=== PATIENT | male | born 1935 | race African-American/Black ===

== ENCOUNTER 2018-03-03 19:15 | Emergency (ER) | payer MEDICARE ==
[~2018-03-03] VITALS: Ht 175.3 cm; Wt 68.0 kg
[~2018-03-03 19:15] MED LIST: AMLO2.5T45; EZET1TAB7 PO; LOSA25TA12 PO; PANT40TA4 PO
[2018-03-03 19:27] VITALS: BP 169/81
[2018-03-03] MEDS ORDERED: BACITRACIN ZINC OINT UDPKT TOP ONE (21:30)
[2018-03-03] MEDS ORDERED: TETANUS, DIPHTHERIA, PERTUSSIS VAC/PF 0.5ML (>7YR OLD) IM ONE (21:45)
== END 2018-03-03 22:11 | disposition home or self-care (01) ==
LOC: ER 19:15
DX: S62.501A Fracture of unspecified phalanx of right thumb, initial encounter for closed fracture (principal); S61.411A Laceration without foreign body of right hand, initial encounter; I10 Essential (primary) hypertension; Z85.46 Personal history of malignant neoplasm of prostate; W01.198A Fall on same level from slipping, tripping and stumbling with subsequent striking against other object, initial encounter; Y93.89 Activity, other specified; Y92.017 Garden or yard in single-family (private) house as the place of occurrence of the external cause
CPT/HCPCS: 12002; 73130; 90471; 90715; 99284

== ENCOUNTER 2019-09-30 18:26 | Inpatient (IN) | payer MEDICARE ==
[~2019-09-30] VITALS: Ht 175.3 cm; Wt 66.2 kg
[~2019-09-30 18:26] MED LIST changes: -LOSA25TA12 PO; +LOSA25TA26 PO
[2019-09-30] MEDS ORDERED: SODIUM CHLORIDE 0.9% 1,000 ML IV ONE (22:12)
[2019-09-30] MEDS ORDERED: ONDANSETRON HCL 4MG/2ML INJ IV STA (22:12)
[2019-09-30] MEDS ORDERED: MORPHINE SULFATE 2 MG/ML CPJ (NOT FOR IM USE) IV PRN (22:15)
[2019-09-30] MEDS ORDERED: VANCOMYCIN 1 G PREMIX 200 ML IV ONE (22:15)
[2019-09-30] MEDS ORDERED: PIPERACILLIN/TAZ 3.375G PREMIX 50 ML IV ONE (22:15)
[2019-09-30 22:51] LABS: BASOPHILS % 0.8 % (0.0-2.0); EOSINOPHILS % 3.7 % (0.0-5.0); HEMATOCRIT. 30.1 % (42.0-52.0); HEMOGLOBIN. 9.9 g/dL (14.0-18.0); LYMPHOCYTES % 17.2 % (20.0-50.0); MEAN CORPUSCULAR VOLUME 93.7 fL (80.0-94.0); MEAN PLATELET VOLUME 9.4 fl (7.4-10.4); MONOCYTES % 10.1 % (2.0-8.0); NEUTROPHILS % 68.2 % (40.0-76.0); PLATELET 231 x1000/uL (130-400); RED BLOOD CELL COUNT 3.21 mill/uL (4.7-6.1); RED CELL DISTRIBUTION WIDTH 15.6 % (11.6-14.6)
[2019-09-30 22:53] LABS: CHLORIDE 110 mEq/L (98-107)
[2019-09-30 23:02] LABS: PROTHROMBIN TIME 10.8 sec (9.6-11.0)
[2019-09-30 23:02] LABS: CLARITY URINE CLEAR (CLEAR); COLOR URINE YELLOW (YELLOW); KETONES URINE NEGATIVE (NEGATIVE); LEUKOCYTE ESTERASE URINE 2+ (NEGATIVE); NITRITE URINE POSITIVE (NEGATIVE); OCCULT BLOOD URINE NEGATIVE (NEGATIVE); PROTEIN URINE NEGATIVE (NEGATIVE); SPECIFIC GRAVITY URINE 1.021 (1.005-1.030); UROBILINOGEN URINE 0.2 E.U./dL (0.2-1.0)
[2019-10-01 01:10] VITALS: BP 123/62
[2019-10-01] MEDS ORDERED: CLONIDINE 0.1MG TABLET PO PRN (03:30)
[2019-10-01] MEDS ORDERED: ACETAMINOPHEN 650MG/20.3ML UDC PO PRN (03:30)
[2019-10-01] MEDS ORDERED: MORPHINE SULFATE 2 MG/ML CPJ (NOT FOR IM USE) IV PRN (03:30)
[2019-10-01] MEDS ORDERED: ONDANSETRON HCL 4MG/2ML INJ IV PRN (03:30)
[2019-10-01] MEDS ORDERED: PIPERACILLIN/TAZOBACTAM 3.375 G/VIAL IV SCH (06:00)
[2019-10-01] MEDS: PIPERACILLIN/TAZOBACTAM 2.25 G in DEXTROSE 5% WATER 50 ML IV SCH ×4 (06:37→23:47)
[2019-10-01 07:03] LABS: BASOPHILS % 0.8 % (0.0-2.0); EOSINOPHILS % 5.4 % (0.0-5.0); HEMATOCRIT. 27.8 % (42.0-52.0); HEMOGLOBIN. 9.3 g/dL (14.0-18.0); LYMPHOCYTES % 23.3 % (20.0-50.0); MEAN CORPUSCULAR VOLUME 92.7 fL (80.0-94.0); MEAN PLATELET VOLUME 9.5 fl (7.4-10.4); MONOCYTES % 12.3 % (2.0-8.0); NEUTROPHILS % 58.2 % (40.0-76.0); PLATELET 202 x1000/uL (130-400); RED CELL DISTRIBUTION WIDTH 15.8 % (11.6-14.6)
[2019-10-01 07:12] LABS: CHLORIDE 113 mEq/L (98-107)
[2019-10-01] MEDS: ASPIRIN 81MG EC TABLET PO SCH (08:36)
[2019-10-01] MEDS: ENOXAPARIN 40MG/0.4ML SYR SUBCUT SCH (08:37)
[2019-10-01] MEDS: AMLODIPINE 2.5MG TABLET PO SCH (08:37)
[2019-10-01 11:22] LABS: TOTAL IRON BINDING CAPACITY 255 ug/dL (250-450)
[2019-10-01 11:41] LABS: FOLIC ACID (FOLATE) SERUM 9.7 ng/mL (>5.38)
[2019-10-01] MEDS: VANCOMYCIN 1 G PREMIX 200 ML IV SCH (14:00)
[2019-10-01] MEDS ORDERED: VANCOMYCIN 750 MG PREMIX 150 ML IV SCH (16:00)
[2019-10-01 20:00] VITALS: BP_SYST 135; BP_SYST 191; BP_DIAS 102; BP_DIAS 61
[2019-10-02] VITALS: BP_SYST 137; BP_SYST 200; BP_DIAS 117; BP_DIAS 59
[2019-10-02] MEDS ORDERED: FERR300S PO (03:47)
[2019-10-02] MEDS ORDERED: ERGO400C PO (03:49)
[2019-10-02] MEDS ORDERED: DOCU250C14 MT (03:50)
[2019-10-02 04:00] VITALS: BP_SYST 136; BP_SYST 199; BP_DIAS 105; BP_DIAS 59
[2019-10-02] MEDS: PIPERACILLIN/TAZOBACTAM 2.25 G in DEXTROSE 5% WATER 50 ML IV SCH ×3 (05:49→18:00)
[2019-10-02 09:26] LABS: BASOPHILS % 1.2 % (0.0-2.0); EOSINOPHILS % 5.3 % (0.0-5.0); HEMATOCRIT. 31.9 % (42.0-52.0); HEMOGLOBIN. 10.6 g/dL (14.0-18.0); LYMPHOCYTES % 21.5 % (20.0-50.0); MEAN CORPUSCULAR HEMOGLOBIN 31.2 pg (28.0-32.0); MEAN CORPUSCULAR VOLUME 93.5 fL (80.0-94.0); MEAN PLATELET VOLUME 9.4 fl (7.4-10.4); PLATELET 235 x1000/uL (130-400); RED BLOOD CELL COUNT 3.41 mill/uL (4.7-6.1); RED CELL DISTRIBUTION WIDTH 15.4 % (11.6-14.6)
[2019-10-02 09:41] LABS: CHLORIDE 111 mEq/L (98-107)
[2019-10-02 09:49] LABS: LDL CHOLESTEROL 65 mg/dL (5-100); PHOSPHORUS 2.4 mg/dL (2.5-4.9)
[2019-10-02 09:51] LABS: HDL CHOLESTEROL 55 mg/dL (40-59)
[2019-10-02] MEDS: AMLODIPINE 2.5MG TABLET PO SCH (10:08)
[2019-10-02] MEDS: ASPIRIN 81MG EC TABLET PO SCH (10:08)
[2019-10-02] MEDS: ENOXAPARIN 40MG/0.4ML SYR SUBCUT SCH (10:09)
[2019-10-02] MEDS: VANCOMYCIN 1 G PREMIX 200 ML IV SCH (13:52)
[2019-10-02 20:00] VITALS: BP 134/79
[2019-10-03] VITALS: BP 128/65
[2019-10-03] MEDS: PIPERACILLIN/TAZOBACTAM 2.25 G in DEXTROSE 5% WATER 50 ML IV SCH ×3 (01:20→11:11)
[2019-10-03 04:00] VITALS: BP 114/59
[2019-10-03 08:00] VITALS: BP 119/59
[2019-10-03] MEDS: ASPIRIN 81MG EC TABLET PO SCH (09:43)
[2019-10-03] MEDS: AMLODIPINE 2.5MG TABLET PO SCH (09:43)
[2019-10-03] MEDS: ENOXAPARIN 40MG/0.4ML SYR SUBCUT SCH (09:44)
[2019-10-03 11:43] VITALS: BP 119/59
[2019-10-04] MEDS ORDERED: VANCOMYCIN 1 G PREMIX 200 ML IV SCH (02:00)
== END 2019-10-03 13:15 | disposition home or self-care (01) | DRG 872 ==
LOC: ER 18:26 → 6EST 23:14 → EDBEDREQTM 23:17 → EDBEDREQ 23:17 → ENRESERV 10-01 00:16 → 6EST 10-01 01:31
PROVIDERS: ADMIT Internal Medicine; ATTEND Internal Medicine
DX: A41.9 Sepsis, unspecified organism (principal); L03.115 Cellulitis of right lower limb; N39.0 Urinary tract infection, site not specified; E44.1 Mild protein-calorie malnutrition; L03.116 Cellulitis of left lower limb; M86.8X2 Other osteomyelitis, upper arm; E78.00 Pure hypercholesterolemia, unspecified; D64.9 Anemia, unspecified; K57.90 Diverticulosis of intestine, part unspecified, without perforation or abscess without bleeding; B96.20 Unspecified Escherichia coli [E. coli] as the cause of diseases classified elsewhere; D63.8 Anemia in other chronic diseases classified elsewhere; I11.9 Hypertensive heart disease without heart failure; Z85.46 Personal history of malignant neoplasm of prostate; Z79.82 Long term (current) use of aspirin; Z82.49 Family history of ischemic heart disease and other diseases of the circulatory system; Z92.21 Personal history of antineoplastic chemotherapy; Z68.21 Body mass index [BMI] 21.0-21.9, adult
CPT/HCPCS: 36415; 71045; 80048; 80053; 80061; 80202; 81003; 82607; 82746; 83036; 83540; 83550; 83605; 83735; 84100; 84145; 84484; 85025; 87077; 87186; 93005; 93970; 99285; J1650; J2543; J3370; J7030; J7040; J7060

== ENCOUNTER 2021-06-18 18:44 | Inpatient (IN) | payer MEDICARE ==
[~2021-06-18] VITALS: Ht 175.3 cm; Wt 54.4 kg
[2021-06-18 17:00] VITALS: BP 132/61
[~2021-06-18 18:44] MED LIST changes: +ATOR10TA PO; +DOCU250C14 MT; +ERGO400C PO; +FERR300S PO; -PANT40TA4 PO; +PANT40TA51 PO
[2021-06-18 20:00] VITALS: BP 131/74
[2021-06-18] MEDS ORDERED: ACETAMINOPHEN 325MG TABLET PO PRN (20:15)
[2021-06-18] MEDS ORDERED: ONDANSETRON HCL 4MG TABLET PO PRN (20:30)
[2021-06-18] MEDS: ATORVASTATIN CALCIUM 10MG TABLET PO SCH (21:59)
[2021-06-18] MEDS ORDERED: INFLUENZA VACCINE 05/PF 0.5 ML SYRINGE IM ONE (23:15)
[2021-06-19] MEDS ORDERED: VISCOUS LIDOCAINE 2% 15 ML UDC MM PRN (07:15)
[2021-06-19 07:23] LABS: BASOPHILS % 0.8 % (0.0-2.0); EOSINOPHILS % 2.7 % (0.0-5.0); HEMATOCRIT. 30.9 % (42.0-52.0); LYMPHOCYTES % 8.2 % (20.0-50.0); MEAN CORPUSCULAR HEMOGLOBIN 28.1 pg (28.0-32.0); MEAN CORPUSCULAR VOLUME 87.1 fL (80.0-94.0); MEAN PLATELET VOLUME 9.3 fl (7.4-10.4); MONOCYTES % 9.5 % (2.0-8.0); NEUTROPHILS % 78.8 % (40.0-76.0); PLATELET 334 x1000/uL (130-400); RED BLOOD CELL COUNT 3.55 mill/uL (4.7-6.1); RED CELL DISTRIBUTION WIDTH 17.7 % (11.6-14.6)
[2021-06-19 07:29] LABS: CHLORIDE 105 mEq/L (98-107)
[2021-06-19] MEDS ORDERED: OXYCODONE HCL 5MG TABLET PO PRN (07:30)
[2021-06-19 07:34] LABS: TOTAL IRON BINDING CAPACITY 255 ug/dL (250-450)
[2021-06-19 08:00] VITALS: BP 120/55
[2021-06-19] MEDS ORDERED: PANTOPRAZOLE SODIUM 40 MG/VIAL IV SCH (09:00)
[2021-06-19] MEDS ORDERED: DOCUSATE SODIUM 250MG CAPSULE PO SCH (09:00)
[2021-06-19] MEDS ORDERED: PANTOPRAZOLE 40MG DR TABLET PO SCH (09:00)
[2021-06-19] MEDS ORDERED: FERROUS SULFATE 325MG TABLET PO SCH (09:00)
[2021-06-19] MEDS ORDERED: AMLODIPINE 2.5MG TABLET PO SCH ×2 (09:00)
[2021-06-19] MEDS: FAMOTIDINE 20MG TABLET PO SCH (09:01)
[2021-06-19] MEDS: LOSARTAN POTASSIUM 25 MG TABLET PO SCH (09:01)
[2021-06-19] MEDS: AMLODIPINE 2.5MG TABLET PO SCH (09:02)
[2021-06-19] MEDS: FERROUS SULFATE 325MG TABLET PO SCH (09:14)
[2021-06-19] MEDS ORDERED: SODIUM POLYSTYRENE SULFONATE 15 G/60 ML BOT PO NR (10:00)
[2021-06-19] MEDS: CYANOCOBALAMIN 1000MCG/ML VIAL IM SCH (17:38)
[2021-06-19] MEDS: ASCORBIC ACID 500 MG TABLET PO SCH (17:39)
[2021-06-19 20:00] VITALS: BP 117/56
[2021-06-19] MEDS: ATORVASTATIN CALCIUM 10MG TABLET PO SCH (21:31)
[2021-06-20 07:51] VITALS: BP 121/61
[2021-06-20] MEDS: CYANOCOBALAMIN 1000MCG/ML VIAL IM SCH (09:10)
[2021-06-20] MEDS: ASCORBIC ACID 500 MG TABLET PO SCH (09:10)
[2021-06-20] MEDS: FERROUS SULFATE 325MG TABLET PO SCH (09:10)
[2021-06-20] MEDS: FAMOTIDINE 20MG TABLET PO SCH (09:10)
[2021-06-20] MEDS: AMLODIPINE 2.5MG TABLET PO SCH (09:11)
[2021-06-20] MEDS: LOSARTAN POTASSIUM 25 MG TABLET PO SCH (09:11)
[2021-06-20 17:17] LABS: HEMATOCRIT. 32.9 % (42.0-52.0); HEMOGLOBIN. 10.7 g/dL (14.0-18.0); MEAN PLATELET VOLUME 9.1 fl (7.4-10.4); PLATELET 402 x1000/uL (130-400); RED BLOOD CELL COUNT 3.83 mill/uL (4.7-6.1); RED CELL DISTRIBUTION WIDTH 17.6 % (11.6-14.6)
[2021-06-20 17:19] LABS: CHLORIDE 104 mEq/L (98-107)
[2021-06-20 20:00] VITALS: BP 108/48
[2021-06-20 22:37] LABS: PLATELET ESTIMATE SLIGHTLY INCREASED
[2021-06-20] MEDS: ATORVASTATIN CALCIUM 10MG TABLET PO SCH (22:48)
[2021-06-21 08:07] VITALS: BP 121/61
[2021-06-21] MEDS: ASCORBIC ACID 500 MG TABLET PO SCH (08:41)
[2021-06-21] MEDS: CYANOCOBALAMIN 1000MCG/ML VIAL IM SCH (08:41)
[2021-06-21] MEDS: LOSARTAN POTASSIUM 25 MG TABLET PO SCH (08:41)
[2021-06-21] MEDS: FAMOTIDINE 20MG TABLET PO SCH (08:41)
[2021-06-21] MEDS: AMLODIPINE 2.5MG TABLET PO SCH (08:41)
[2021-06-21] MEDS: FERROUS SULFATE 325MG TABLET PO SCH (08:41)
[2021-06-21] MEDS: ENOXAPARIN 40MG/0.4ML SYR SUBCUT SCH (11:54)
[2021-06-21] MEDS ORDERED: NALOXONE HCL 0.4MG/ML VIAL IV PRN (13:15)
[2021-06-21 20:00] VITALS: BP 119/66
[2021-06-21] MEDS: ATORVASTATIN CALCIUM 10MG TABLET PO SCH (20:34)
[2021-06-22 06:24] LABS: CHLORIDE 105 mEq/L (98-107)
[2021-06-22 06:30] LABS: BASOPHILS % 1.4 % (0.0-2.0); EOSINOPHILS % 3.7 % (0.0-5.0); HEMOGLOBIN. 9.6 g/dL (14.0-18.0); LYMPHOCYTES % 18.5 % (20.0-50.0); MEAN CORPUSCULAR HEMOGLOBIN 28.3 pg (28.0-32.0); MEAN CORPUSCULAR VOLUME 85.8 fL (80.0-94.0); MEAN PLATELET VOLUME 8.7 fl (7.4-10.4); MONOCYTES % 14.3 % (2.0-8.0); NEUTROPHILS % 62.1 % (40.0-76.0); PLATELET 395 x1000/uL (130-400); RED BLOOD CELL COUNT 3.38 mill/uL (4.7-6.1); RED CELL DISTRIBUTION WIDTH 17.6 % (11.6-14.6)
[2021-06-22 07:48] VITALS: BP 114/56
[2021-06-22] MEDS: CYANOCOBALAMIN 1000MCG/ML VIAL IM SCH (08:43)
[2021-06-22] MEDS: AMLODIPINE 2.5MG TABLET PO SCH (08:44)
[2021-06-22] MEDS: LOSARTAN POTASSIUM 25 MG TABLET PO SCH (08:44)
[2021-06-22] MEDS: FAMOTIDINE 20MG TABLET PO SCH (08:44)
[2021-06-22] MEDS: ASCORBIC ACID 500 MG TABLET PO SCH (08:44)
[2021-06-22] MEDS: FERROUS SULFATE 325MG TABLET PO SCH (08:45)
[2021-06-22] MEDS: ENOXAPARIN 40MG/0.4ML SYR SUBCUT SCH (08:45)
[2021-06-22 20:00] VITALS: BP 118/52
[2021-06-22] MEDS: ATORVASTATIN CALCIUM 10MG TABLET PO SCH (20:13)
[2021-06-23 07:49] VITALS: BP 127/62
[2021-06-23] MEDS: CYANOCOBALAMIN 1000MCG/ML VIAL IM SCH (08:36)
[2021-06-23] MEDS: AMLODIPINE 2.5MG TABLET PO SCH (08:37)
[2021-06-23] MEDS: LOSARTAN POTASSIUM 25 MG TABLET PO SCH (08:37)
[2021-06-23] MEDS: ENOXAPARIN 40MG/0.4ML SYR SUBCUT SCH (08:37)
[2021-06-23] MEDS: FERROUS SULFATE 325MG TABLET PO SCH (08:37)
[2021-06-23] MEDS: ASCORBIC ACID 500 MG TABLET PO SCH (08:37)
[2021-06-23] MEDS: FAMOTIDINE 20MG TABLET PO SCH (08:37)
[2021-06-23] MEDS ORDERED: IRON SUCROSE COMPLEX 200 MG in SODIUM CHLORIDE 0.9% 100 ML IV SCH (14:00)
[2021-06-23 20:00] VITALS: BP 137/65
[2021-06-23] MEDS: ATORVASTATIN CALCIUM 10MG TABLET PO SCH (21:57)
[2021-06-24 08:14] VITALS: BP 120/50
[2021-06-24] MEDS: FAMOTIDINE 20MG TABLET PO SCH (08:45)
[2021-06-24] MEDS: ASCORBIC ACID 500 MG TABLET PO SCH (08:45)
[2021-06-24] MEDS: FERROUS SULFATE 325MG TABLET PO SCH (08:45)
[2021-06-24] MEDS: AMLODIPINE 2.5MG TABLET PO SCH (08:46)
[2021-06-24] MEDS: LOSARTAN POTASSIUM 25 MG TABLET PO SCH (08:46)
[2021-06-24] MEDS: ENOXAPARIN 40MG/0.4ML SYR SUBCUT SCH (08:51)
[2021-06-24] MEDS ORDERED: OXYCODONE HCL 5MG TABLET PO PRN (19:00)
[2021-06-24 20:00] VITALS: BP 110/62
[2021-06-24] MEDS: ATORVASTATIN CALCIUM 10MG TABLET PO SCH (20:44)
[2021-06-25 08:00] VITALS: BP 117/58
[2021-06-25] MEDS: ASCORBIC ACID 500 MG TABLET PO SCH (08:40)
[2021-06-25] MEDS: FERROUS SULFATE 325MG TABLET PO SCH (08:40)
[2021-06-25] MEDS: LOSARTAN POTASSIUM 25 MG TABLET PO SCH (08:40)
[2021-06-25] MEDS: FAMOTIDINE 20MG TABLET PO SCH (08:40)
[2021-06-25] MEDS: AMLODIPINE 2.5MG TABLET PO SCH (08:40)
[2021-06-25] MEDS: ENOXAPARIN 30MG/0.3ML SYR SUBCUT SCH (08:41)
[2021-06-25 14:09] LABS: 25-HYDROXY VITAMIN D3 35 ng/mL (.)
[2021-06-25] MEDS ORDERED: ERGOCALCIFEROL 50000UNITS CAPSULE PO SCH (15:00)
[2021-06-25 20:00] VITALS: BP 118/57
[2021-06-25] MEDS: ATORVASTATIN CALCIUM 10MG TABLET PO SCH (20:44)
[2021-06-26 08:00] VITALS: BP 117/56
[2021-06-26] MEDS: LOSARTAN POTASSIUM 25 MG TABLET PO SCH (08:59)
[2021-06-26] MEDS: ASCORBIC ACID 500 MG TABLET PO SCH (08:59)
[2021-06-26] MEDS: FERROUS SULFATE 325MG TABLET PO SCH (08:59)
[2021-06-26] MEDS: ENOXAPARIN 30MG/0.3ML SYR SUBCUT SCH (08:59)
[2021-06-26] MEDS: AMLODIPINE 2.5MG TABLET PO SCH (09:00)
[2021-06-26] MEDS: FAMOTIDINE 20MG TABLET PO SCH (09:00)
[2021-06-26] MEDS: MEGESTROL ACETATE 400 MG/10 ML UDC PO SCH (13:43)
[2021-06-26] MEDS ORDERED: TOPUD PO (15:42)
[2021-06-26] MEDS ORDERED: ATOR10TA PO (15:42)
[2021-06-26] MEDS ORDERED: AMLO2.5T45 PO (15:42)
[2021-06-26] MEDS ORDERED: FERR-63 PO (15:42)
[2021-06-26] MEDS ORDERED: ASCO500T20 PO (15:42)
[2021-06-26] MEDS ORDERED: FAMO20TA8 PO (15:42)
[2021-06-26] MEDS ORDERED: LOSA25TA3 PO (15:42)
[2021-06-26] MEDS ORDERED: MEGE400O4 PO (15:42)
[2021-06-26 20:00] VITALS: BP 121/59
[2021-06-26] MEDS: ATORVASTATIN CALCIUM 10MG TABLET PO SCH (20:44)
[2021-06-27 08:00] VITALS: BP 108/60
[2021-06-27] MEDS: MEGESTROL ACETATE 400 MG/10 ML UDC PO SCH (08:42)
[2021-06-27] MEDS: ASCORBIC ACID 500 MG TABLET PO SCH (08:43)
[2021-06-27] MEDS: ENOXAPARIN 30MG/0.3ML SYR SUBCUT SCH (08:43)
[2021-06-27] MEDS: FAMOTIDINE 20MG TABLET PO SCH (08:43)
[2021-06-27] MEDS: LOSARTAN POTASSIUM 25 MG TABLET PO SCH (08:43)
[2021-06-27] MEDS: FERROUS SULFATE 325MG TABLET PO SCH (08:43)
[2021-06-27] MEDS: AMLODIPINE 2.5MG TABLET PO SCH (08:44)
[2021-06-27 11:18] VITALS: BP 109/61
== END 2021-06-27 13:30 | disposition home health service (06) | DRG 375 ==
PROVIDERS: ADMIT Physical Medicine & Rehabilitation Spinal Cord Injury Medicine; ATTEND Family Medicine Adult Medicine
DX: C18.4 Malignant neoplasm of transverse colon (principal); E46 Unspecified protein-calorie malnutrition; C18.9 Malignant neoplasm of colon, unspecified; Z68.1 Body mass index [BMI] 19.9 or less, adult; I10 Essential (primary) hypertension; R53.81 Other malaise; R26.9 Unspecified abnormalities of gait and mobility; E87.5 Hyperkalemia; Z82.49 Family history of ischemic heart disease and other diseases of the circulatory system; Z90.49 Acquired absence of other specified parts of digestive tract; Z90.79 Acquired absence of other genital organ(s); E78.5 Hyperlipidemia, unspecified; D50.9 Iron deficiency anemia, unspecified; E55.9 Vitamin D deficiency, unspecified; F39 Unspecified mood [affective] disorder; R32 Unspecified urinary incontinence; K12.0 Recurrent oral aphthae; Z85.038 Personal history of other malignant neoplasm of large intestine; Z85.46 Personal history of malignant neoplasm of prostate
CPT/HCPCS: 36415; 80048; 80053; 82306; 82607; 82728; 82746; 83540; 83550; 84134; 84443; 85025; 90686; 92523; 92610; 93970; 97110; 97112; 97116; 97150; 97162; 97166; 97530; 97535; A6261; J1650; J3420; J7050; Q0162

== ENCOUNTER → 2021-08-11 | Outpatient (CLI) | payer MEDICARE ==
[~2021-08-11] MED LIST changes: -AMLO2.5T45; +AMLO2.5T45 PO; +ASCO500T20 PO; -DOCU250C14 MT; -ERGO400C PO; -EZET1TAB7 PO; +FAMO20TA8 PO; +FERR-63 PO; -FERR300S PO; -LOSA25TA26 PO; +LOSA25TA3 PO; +MEGE400O4 PO; -PANT40TA51 PO; +TOPUD PO
[2021-08-11 11:29] LABS: BASOPHILS % 0.7 % (0.0-2.0); EOSINOPHILS % 2.9 % (0.0-5.0); HEMATOCRIT. 37.5 % (42.0-52.0); LYMPHOCYTES % 25.9 % (20.0-50.0); MEAN CORPUSCULAR HEMOGLOBIN 28.2 pg (28.0-32.0); MEAN CORPUSCULAR VOLUME 87.8 fL (80.0-94.0); MEAN PLATELET VOLUME 10.5 fl (7.4-10.4); MONOCYTES % 7.4 % (2.0-8.0); NEUTROPHILS % 63.1 % (40.0-76.0); PLATELET 140 x1000/uL (130-400); RED BLOOD CELL COUNT 4.27 mill/uL (4.7-6.1); RED CELL DISTRIBUTION WIDTH 20.8 % (11.6-14.6)
[2021-08-11 11:51] LABS: CHLORIDE 110 mEq/L (98-107)
== END | disposition home or self-care (01) ==
LOC: LAB 10:53
PROVIDERS: ATTEND Internal Medicine Hematology & Oncology
DX: C18.4 Malignant neoplasm of transverse colon (principal)
CPT/HCPCS: 36415; 80053; 82378; 85025

== ENCOUNTER → 2021-10-27 | Outpatient (CLI) | payer MEDICARE ==
[2021-10-27 15:38] LABS: BASOPHILS % 0.6 % (0.0-2.0); EOSINOPHILS % 3.3 % (0.0-5.0); HEMATOCRIT. 38.6 % (42.0-52.0); HEMOGLOBIN. 12.6 g/dL (14.0-18.0); LYMPHOCYTES % 18.2 % (20.0-50.0); MEAN CORPUSCULAR HEMOGLOBIN 30.7 pg (28.0-32.0); MEAN CORPUSCULAR VOLUME 93.8 fL (80.0-94.0); MEAN PLATELET VOLUME 9.7 fl (7.4-10.4); MONOCYTES % 9.2 % (2.0-8.0); NEUTROPHILS % 68.7 % (40.0-76.0); PLATELET 163 x1000/uL (130-400); RED BLOOD CELL COUNT 4.11 mill/uL (4.7-6.1); RED CELL DISTRIBUTION WIDTH 14.7 % (11.6-14.6)
[2021-10-27 15:50] LABS: PARTIAL THROMBOPLASTIN TIME 25.9 sec (23.4-31.0); PROTHROMBIN TIME 10.9 sec (9.6-11.0)
== END | disposition home or self-care (01) ==
LOC: LAB 14:39
PROVIDERS: ATTEND Internal Medicine Hematology & Oncology
DX: C18.4 Malignant neoplasm of transverse colon (principal)
CPT/HCPCS: 36415; 85025

== ENCOUNTER → 2021-11-13 | Day surgery (SDC) | payer MEDICARE ==
[2021-11-13] VITALS (13 sets, daily range): BP systolic 135–161; BP diastolic 59–74
[~2021-11-13] VITALS: Ht 175.3 cm; Wt 49.4 kg
[~2021-11-13] MED LIST changes: +FENTANYL CITRATE/PF 50MCG/ML 2ML VIAL IV NR; +FENTANYL CITRATE/PF 50MCG/ML 2ML VIAL ONE; +LIDOCAINE HCL 1% 10 MG/ML 10ML VIAL ONE; +LIDOCAINE HCL 1% 30ML VIAL (10MG/ML) ONE; +SODIUM BICARBONATE 4% (2.4MEQ) 5ML VIAL IV ONE
[2021-11-13 12:35] LABS: HEMATOCRIT 38.9 % (42.0-52.0); HEMOGLOBIN 12.9 g/dL (14.0-18.0)
== END | disposition home or self-care (01) ==
LOC: RAD 07:24
PROVIDERS: ATTEND Internal Medicine Hematology & Oncology
DX: R16.0 Hepatomegaly, not elsewhere classified (principal); C18.4 Malignant neoplasm of transverse colon; K76.89 Other specified diseases of liver; I10 Essential (primary) hypertension; K21.9 Gastro-esophageal reflux disease without esophagitis; Z79.899 Other long term (current) drug therapy; Z87.891 Personal history of nicotine dependence; Z98.890 Other specified postprocedural states; Z20.822 Contact with and (suspected) exposure to COVID-19
CPT/HCPCS: 36415; 47000; 49411; 76942; 77002; 85014; 85018; 87426; 88300; 88307; C1887; C1893; J3010; J3490; J7040

== ENCOUNTER → 2022-01-01 | Outpatient (CLI) | payer MEDICARE ==
[~2022-01-01] MED LIST changes: -FENTANYL CITRATE/PF 50MCG/ML 2ML VIAL IV NR; -FENTANYL CITRATE/PF 50MCG/ML 2ML VIAL ONE; -LIDOCAINE HCL 1% 10 MG/ML 10ML VIAL ONE; -LIDOCAINE HCL 1% 30ML VIAL (10MG/ML) ONE; -SODIUM BICARBONATE 4% (2.4MEQ) 5ML VIAL IV ONE
[2022-01-01 13:37] LABS: BASOPHILS % 0.4 % (0.0-2.0); EOSINOPHILS % 1.5 % (0.0-5.0); HEMATOCRIT. 37.6 % (42.0-52.0); HEMOGLOBIN. 12.4 g/dL (14.0-18.0); LYMPHOCYTES % 13.8 % (20.0-50.0); MEAN CORPUSCULAR HEMOGLOBIN 30.7 pg (28.0-32.0); MEAN CORPUSCULAR VOLUME 93.2 fL (80.0-94.0); MEAN PLATELET VOLUME 11.9 fl (7.4-10.4); NEUTROPHILS % 74.3 % (40.0-76.0); PLATELET 84 x1000/uL (130-400); RED BLOOD CELL COUNT 4.03 mill/uL (4.7-6.1); RED CELL DISTRIBUTION WIDTH 14.1 % (11.6-14.6)
[2022-01-01 13:38] LABS: CHLORIDE 108 mEq/L (98-107)
== END | disposition home or self-care (01) ==
LOC: LAB 13:01
PROVIDERS: ATTEND Internal Medicine Hematology & Oncology
DX: C18.4 Malignant neoplasm of transverse colon (principal)
CPT/HCPCS: 36415; 80053; 82378; 85025

== ENCOUNTER → 2022-02-10 | Outpatient (CLI) | payer MEDICARE ==
[2022-02-10 14:00] LABS: BASOPHILS % 0.6 % (0.0-2.0); HEMATOCRIT. 35.7 % (42.0-52.0); LYMPHOCYTES % 17.4 % (20.0-50.0); MEAN CORPUSCULAR HEMOGLOBIN 31.7 pg (28.0-32.0); MEAN CORPUSCULAR VOLUME 94.4 fL (80.0-94.0); MEAN PLATELET VOLUME 11.4 fl (7.4-10.4); MONOCYTES % 13.3 % (2.0-8.0); NEUTROPHILS % 65.7 % (40.0-76.0); PLATELET 113 x1000/uL (130-400); RED BLOOD CELL COUNT 3.78 mill/uL (4.7-6.1); RED CELL DISTRIBUTION WIDTH 13.8 % (11.6-14.6)
[2022-02-10 14:16] LABS: CHLORIDE 107 mEq/L (98-107)
== END | disposition home or self-care (01) ==
LOC: LAB 13:21
PROVIDERS: ATTEND Internal Medicine Hematology & Oncology
DX: C18.4 Malignant neoplasm of transverse colon (principal)
CPT/HCPCS: 36415; 80053; 82378; 85025

== ENCOUNTER → 2022-03-24 | Outpatient (CLI) | payer MEDICARE ==
[2022-03-24 14:36] LABS: BASOPHILS % 0.9 % (0.0-2.0); EOSINOPHILS % 2.2 % (0.0-5.0); HEMATOCRIT. 33.9 % (42.0-52.0); HEMOGLOBIN. 11.3 g/dL (14.0-18.0); LYMPHOCYTES % 18.6 % (20.0-50.0); MEAN CORPUSCULAR HEMOGLOBIN 33.7 pg (28.0-32.0); MEAN CORPUSCULAR VOLUME 101.2 fL (80.0-94.0); MONOCYTES % 13.2 % (2.0-8.0); NEUTROPHILS % 65.1 % (40.0-76.0); RED BLOOD CELL COUNT 3.35 mill/uL (4.7-6.1)
[2022-03-24 14:38] LABS: CHLORIDE 106 mEq/L (98-107)
[2022-03-24 22:25] LABS: PLATELET 56 x1000/uL (130-400)
[2022-03-24 22:27] LABS: MEAN PLATELET VOLUME 11.1 fl (7.4-10.4)
== END | disposition home or self-care (01) ==
LOC: LAB 14:01
PROVIDERS: ATTEND Internal Medicine Hematology & Oncology
DX: C18.4 Malignant neoplasm of transverse colon (principal)
CPT/HCPCS: 36415; 80053; 82378; 85025

== ENCOUNTER → 2022-04-21 | Outpatient (CLI) | payer MEDICARE ==
[2022-04-21 10:19] LABS: BASOPHILS % 0.4 % (0.0-2.0); EOSINOPHILS % 1.7 % (0.0-5.0); HEMATOCRIT. 35.1 % (42.0-52.0); HEMOGLOBIN. 11.6 g/dL (14.0-18.0); LYMPHOCYTES % 10.5 % (20.0-50.0); MEAN CORPUSCULAR HEMOGLOBIN 34.5 pg (28.0-32.0); MEAN CORPUSCULAR VOLUME 104.5 fL (80.0-94.0); MEAN PLATELET VOLUME 11.4 fl (7.4-10.4); MONOCYTES % 11.3 % (2.0-8.0); NEUTROPHILS % 76.1 % (40.0-76.0); PLATELET 80 x1000/uL (130-400); RED BLOOD CELL COUNT 3.36 mill/uL (4.7-6.1); RED CELL DISTRIBUTION WIDTH 19.5 % (11.6-14.6)
[2022-04-21 10:26] LABS: CHLORIDE 107 mEq/L (98-107)
== END | disposition home or self-care (01) ==
LOC: LAB 09:46
PROVIDERS: ATTEND Internal Medicine Hematology & Oncology
DX: C18.4 Malignant neoplasm of transverse colon (principal)
CPT/HCPCS: 36415; 80053; 82378; 85025

== ENCOUNTER → 2022-07-09 | Outpatient (CLI) | payer MEDICARE ==
[2022-07-09 14:57] LABS: CHLORIDE 106 mEq/L (98-107)
[2022-07-09 14:58] LABS: BASOPHILS % 0.6 % (0.0-2.0); EOSINOPHILS % 1.6 % (0.0-5.0); HEMATOCRIT. 33.5 % (42.0-52.0); HEMOGLOBIN. 11.3 g/dL (14.0-18.0); LYMPHOCYTES % 19.9 % (20.0-50.0); MEAN CORPUSCULAR HEMOGLOBIN 35.8 pg (28.0-32.0); MEAN CORPUSCULAR VOLUME 106.6 fL (80.0-94.0); MEAN PLATELET VOLUME 11.9 fl (7.4-10.4); MONOCYTES % 10.8 % (2.0-8.0); NEUTROPHILS % 67.1 % (40.0-76.0); PLATELET 100 x1000/uL (130-400); RED BLOOD CELL COUNT 3.14 mill/uL (4.7-6.1); RED CELL DISTRIBUTION WIDTH 20.8 % (11.6-14.6)
== END | disposition home or self-care (01) ==
LOC: LAB 14:12
PROVIDERS: ATTEND Internal Medicine Hematology & Oncology
DX: C18.4 Malignant neoplasm of transverse colon (principal)
CPT/HCPCS: 36415; 80053; 82378; 85025

== ENCOUNTER → 2022-08-20 | Outpatient (CLI) | payer MEDICARE ==
[2022-08-20 15:27] LABS: BASOPHILS % 0.4 % (0.0-2.0); EOSINOPHILS % 1.4 % (0.0-5.0); HEMATOCRIT. 33.2 % (42.0-52.0); HEMOGLOBIN. 11.4 g/dL (14.0-18.0); LYMPHOCYTES % 13.4 % (20.0-50.0); MEAN CORPUSCULAR VOLUME 107.5 fL (80.0-94.0); MEAN PLATELET VOLUME 10.9 fl (7.4-10.4); MONOCYTES % 9.6 % (2.0-8.0); NEUTROPHILS % 75.2 % (40.0-76.0); PLATELET 80 x1000/uL (130-400); RED BLOOD CELL COUNT 3.09 mill/uL (4.7-6.1); RED CELL DISTRIBUTION WIDTH 20.8 % (11.6-14.6)
[2022-08-20 15:47] LABS: CHLORIDE 111 mEq/L (98-107)
== END | disposition home or self-care (01) ==
LOC: LAB 14:51
PROVIDERS: ATTEND Internal Medicine Hematology & Oncology
DX: C18.4 Malignant neoplasm of transverse colon (principal)
CPT/HCPCS: 36415; 80053; 82378; 85025

== ENCOUNTER → 2022-09-24 | Outpatient (CLI) | payer MEDICARE ==
[2022-09-24 14:48] LABS: BASOPHILS % 0.5 % (0.0-2.0); EOSINOPHILS % 2.1 % (0.0-5.0); HEMATOCRIT. 37.4 % (42.0-52.0); HEMOGLOBIN. 12.3 g/dL (14.0-18.0); LYMPHOCYTES % 14.9 % (20.0-50.0); MEAN CORPUSCULAR HEMOGLOBIN 36.2 pg (28.0-32.0); MEAN CORPUSCULAR VOLUME 109.9 fL (80.0-94.0); MONOCYTES % 10.5 % (2.0-8.0); PLATELET 127 x1000/uL (130-400)
[2022-09-24 14:56] LABS: INR 1.1; PARTIAL THROMBOPLASTIN TIME 31.8 sec (23.4-31.0); PROTHROMBIN TIME 11.4 sec (9.6-11.0)
[2022-09-24 15:05] LABS: CHLORIDE 109 mEq/L (98-107)
== END | disposition home or self-care (01) ==
LOC: LAB 14:03
PROVIDERS: ATTEND Internal Medicine Hematology & Oncology
DX: C18.4 Malignant neoplasm of transverse colon (principal); Z86.2 Personal history of diseases of the blood and blood-forming organs and certain disorders involving the immune mechanism
CPT/HCPCS: 36415; 80053; 82378; 85025

== ENCOUNTER → 2022-11-03 | Outpatient (CLI) | payer MEDICARE ==
[2022-11-03 15:20] LABS: CHLORIDE 105 mEq/L (98-107)
== END | disposition home or self-care (01) ==
LOC: LAB 14:30
PROVIDERS: ATTEND Internal Medicine Hematology & Oncology
DX: C18.4 Malignant neoplasm of transverse colon (principal)
CPT/HCPCS: 36415; 80053; 82378

== ENCOUNTER → 2023-01-06 | Outpatient (CLI) | payer MEDICARE ==
[2023-01-06 13:54] LABS: BASOPHILS % 0.6 % (0.0-2.0); EOSINOPHILS % 3.8 % (0.0-5.0); HEMOGLOBIN. 12.7 g/dL (14.0-18.0); MEAN CORPUSCULAR HEMOGLOBIN 31.8 pg (28.0-32.0); MEAN CORPUSCULAR VOLUME 95.5 fL (80.0-94.0); MEAN PLATELET VOLUME 11.3 fl (7.4-10.4); MONOCYTES % 10.6 % (2.0-8.0); PLATELET 95 x1000/uL (130-400); RED BLOOD CELL COUNT 3.98 mill/uL (4.7-6.1); RED CELL DISTRIBUTION WIDTH 13.4 % (11.6-14.6)
[2023-01-06 14:02] LABS: CHLORIDE 108 mEq/L (98-107)
== END | disposition home or self-care (01) ==
LOC: LAB 13:18
PROVIDERS: ATTEND Internal Medicine Hematology & Oncology
DX: C18.4 Malignant neoplasm of transverse colon (principal)
CPT/HCPCS: 36415; 80053; 82378; 85025

== ENCOUNTER → 2023-07-27 | Outpatient (CLI) | payer MEDICARE ==
[~2023-07-27] MED LIST changes: +LOSA-412 PO; -LOSA25TA3 PO; +MEGE400O20 PO; -MEGE400O4 PO
[2023-07-27 13:03] LABS: BASOPHILS % 0.5 % (0.0-2.0); EOSINOPHILS % 3.4 % (0.0-5.0); HEMATOCRIT. 37.2 % (42.0-52.0); HEMOGLOBIN. 12.2 g/dL (14.0-18.0); LYMPHOCYTES % 16.2 % (20.0-50.0); MEAN CORPUSCULAR HEMOGLOBIN 30.8 pg (28.0-32.0); MEAN CORPUSCULAR HGB CONC 32.9 g/dL (31.0-37.0); MEAN CORPUSCULAR VOLUME 93.7 fL (80.0-94.0); MEAN PLATELET VOLUME 12.1 fl (7.4-10.4); MONOCYTES % 12.5 % (2.0-8.0); NEUTROPHILS % 67.4 % (40.0-76.0); PLATELET 108 x1000/uL (130-400); RED BLOOD CELL COUNT 3.96 mill/uL (4.7-6.1); RED CELL DISTRIBUTION WIDTH 14.8 % (11.6-14.6); WHITE BLOOD COUNT 3.1 x1000/uL (4.5-11.0)
[2023-07-27 13:26] LABS: CHLORIDE 108 mEq/L (98-107); INDEX HEMOLYSI 1 (1-3); INDEX ICTERIC 1 (1-4); INDEX LIPEMIC 1 (1-3); POTASSIUM 4.4 mEq/L (3.5-5.1); SODIUM 140 mEq/L (136-145)
[2023-07-27 13:35] LABS: ALANINE AMINOTRANSFERASE 23 IU/L (13-61); ALBUMIN 3.8 g/dL (3.4-5.0); ASPARTATE AMINOTRANSFERASE 22 IU/L (15-37); BILIRUBIN TOTAL 0.6 mg/dL (0.1-1.0); CALCIUM 9.3 mg/dL (8.5-10.1); CARBON DIOXIDE 28 mEq/L (21-32); CREATININE 1.3 mg/dL (0.6-1.3); GLUCOSE 97 mg/dL (70-105); PROTEIN TOTAL 7.5 g/dL (6.0-8.3); UREA NITROGEN BLOOD 20 mg/dL (7-21)
== END | disposition home or self-care (01) ==
LOC: LAB 12:34
PROVIDERS: ATTEND Internal Medicine Hematology & Oncology
DX: C18.4 Malignant neoplasm of transverse colon (principal)
CPT/HCPCS: 36415; 80053; 82378; 85025

== ENCOUNTER → 2023-10-26 | Outpatient (CLI) | payer MEDICARE ==
[2023-10-26 10:12] LABS: BASOPHILS % 0.4 % (0.0-2.0); EOSINOPHILS % 3.1 % (0.0-5.0); HEMATOCRIT. 39.2 % (42.0-52.0); HEMOGLOBIN. 13.1 g/dL (14.0-18.0); LYMPHOCYTES % 19.2 % (20.0-50.0); MEAN CORPUSCULAR HEMOGLOBIN 31.9 pg (28.0-32.0); MEAN CORPUSCULAR HGB CONC 33.4 g/dL (31.0-37.0); MEAN CORPUSCULAR VOLUME 95.3 fL (80.0-94.0); MEAN PLATELET VOLUME 9.5 fl (7.4-10.4); MONOCYTES % 10.3 % (2.0-8.0); PLATELET 155 x1000/uL (130-400); RED BLOOD CELL COUNT 4.12 mill/uL (4.7-6.1); RED CELL DISTRIBUTION WIDTH 14.2 % (11.6-14.6); WHITE BLOOD COUNT 3.3 x1000/uL (4.5-11.0)
[2023-10-26 10:34] LABS: ALANINE AMINOTRANSFERASE 25 IU/L (10-49); ALBUMIN 4.5 g/dL (3.2-4.8); ASPARTATE AMINOTRANSFERASE 25 IU/L (<34); BILIRUBIN TOTAL 0.5 mg/dL (0.1-1.0); CALCIUM 9.9 mg/dL (8.7-10.4); CARBON DIOXIDE 32 mEq/L (21-32); CHLORIDE 107 mEq/L (98-107); CREATININE 1.4 mg/dL (0.6-1.3); GLUCOSE 95 mg/dL (70-105); POTASSIUM 4.8 mEq/L (3.5-5.1); PROTEIN TOTAL 7.6 g/dL (6.0-8.3); SODIUM 141 mEq/L (136-145); UREA NITROGEN BLOOD 21 mg/dL (9-23)
== END | disposition home or self-care (01) ==
LOC: LAB 09:21
PROVIDERS: ATTEND Internal Medicine Hematology & Oncology
DX: C18.4 Malignant neoplasm of transverse colon (principal)
CPT/HCPCS: 36415; 80053; 82378; 85025

== ENCOUNTER 2024-01-11 07:16 | Inpatient (IN) | payer MEDICARE ==
[~2024-01-11] VITALS: Ht 175.3 cm; Wt 56.8 kg
[~2024-01-11 07:16] MED LIST changes: -MEGE400O20 PO; +MEGE400O46 PO
[2024-01-11 08:03] LABS: HEMATOCRIT. 40.9 % (42.0-52.0); HEMOGLOBIN. 13.5 g/dL (14.0-18.0); MEAN CORPUSCULAR HEMOGLOBIN 32.1 pg (28.0-32.0); MEAN CORPUSCULAR VOLUME 97.5 fL (80.0-94.0); MEAN PLATELET VOLUME 9.8 fl (7.4-10.4); PLATELET 136 x1000/uL (130-400)
[2024-01-11 08:18] LABS: DIFFERENTIAL COMMENT 1
[2024-01-11] MEDS: ONDANSETRON HCL 4MG/2ML INJ IV STA (08:52)
[2024-01-11] MEDS: MORPHINE SULFATE 2 MG/ML CPJ (NOT FOR IM USE) IV ONE ×3 (08:52→10:56)
[2024-01-11] MEDS: PANTOPRAZOLE SODIUM 40 MG/VIAL IV STA (08:52)
[2024-01-11] MEDS: SODIUM CHLORIDE 0.9% 500 ML IV ONE (08:52)
[2024-01-11 08:56] LABS: ALANINE AMINOTRANSFERASE 29 IU/L (10-49); ALBUMIN 4.5 g/dL (3.2-4.8); ASPARTATE AMINOTRANSFERASE 26 IU/L (<34); CALCIUM 9.7 mg/dL (8.7-10.4); CARBON DIOXIDE 27 mEq/L (21-32); CHLORIDE 109 mEq/L (98-107); CREATININE 1.3 mg/dL (0.6-1.3); GLUCOSE 133 mg/dL (70-105)
[2024-01-11 08:57] LABS: BILIRUBIN TOTAL 0.6 mg/dL (0.1-1.0); POTASSIUM 4.1 mEq/L (3.5-5.1); PROTEIN TOTAL 7.9 g/dL (6.0-8.3); SODIUM 144 mEq/L (136-145); UREA NITROGEN BLOOD 14 mg/dL (9-23)
[2024-01-11 09:59] LABS: ANISOCYTOSIS 1+; PLATELET ESTIMATE NORMAL
[2024-01-11 10:28] LABS: CLARITY URINE CLOUDY (CLEAR); COLOR URINE YELLOW (YELLOW); GLUCOSE URINE NEGATIVE (NEGATIVE); KETONES URINE 2+ (NEGATIVE); LEUKOCYTE ESTERASE URINE 1+ (NEGATIVE); NITRITE URINE POSITIVE (NEGATIVE); OCCULT BLOOD URINE TRACE (NEGATIVE); PH URINE 5.5 (4.5-8.0); PROTEIN URINE 1+ (NEGATIVE); SPECIFIC GRAVITY URINE 1.019 (1.005-1.030); UROBILINOGEN URINE 0.2 E.U./dL (0.2-1.0)
[2024-01-11] MEDS: CEFTRIAXONE 1GM/50ML 50 ML IV ONE (10:56)
[2024-01-11] MEDS: METOCLOPRAMIDE HCL 10MG/2ML VIAL IV ONE (11:00)
[2024-01-11 11:15] LABS: BACTERIA URINE 4+; SQUAMOUS EPITHELIAL CELL URINE 1+ /lpf (RARE/1+)
[2024-01-11] MEDS: LOSARTAN 25 MG TABLET PO SCH (14:00)
[2024-01-11] MEDS: AMLODIPINE 5MG TABLET PO SCH (14:55)
[2024-01-11 16:00] VITALS: BP 111/66; PULSE 69; RESP 17; TEMP 96.9
[2024-01-11] MEDS ORDERED: EZET10TA81 MT (16:38)
[2024-01-11 20:00] VITALS: BP 145/64; PULSE 67; RESP 20; TEMP 100
[2024-01-12] VITALS: BP 147/79; PULSE 60; RESP 20; TEMP 97.7
[2024-01-12 04:00] VITALS: BP_SYST 122; BP_SYST 139; BP_DIAS 59; BP_DIAS 85; PULSE 60; PULSE 88; RESP 19; RESP 20; TEMP 97.9; TEMP 98.6
[2024-01-12 08:00] VITALS: BP 104/55; PULSE 59; RESP 19; TEMP 98.5
[2024-01-12 12:00] VITALS: BP 110/58; PULSE 87; RESP 19; TEMP 98.1
[2024-01-12] MEDS: PANTOPRAZOLE SODIUM 40 MG/VIAL IV SCH (13:52)
[2024-01-12] MEDS: ONDANSETRON HCL 4MG/2ML INJ IV PRN (13:52)
[2024-01-12] MEDS: ACETAMINOPHEN 325MG TABLET PO PRN (13:54)
[2024-01-12] MEDS ORDERED: ACETAMINOPHEN 325MG TABLET PO PRN (14:00)
[2024-01-12 16:00] VITALS: BP 111/63; PULSE 77; RESP 20; TEMP 98.1
[2024-01-12] MEDS ORDERED: NALOXONE HCL 0.4MG/ML VIAL IV PRN (16:30)
[2024-01-12] MEDS: DEXT 5%/0.9% NACL 1,000 ML IV SCH (16:48)
[2024-01-12] MEDS: TRAMADOL 50MG TABLET PO PRN (17:08)
[2024-01-12] MEDS: ENOXAPARIN 30MG/0.3ML SYR SUBCUT SCH (17:09)
[2024-01-12 20:00] VITALS: BP 138/62; PULSE 66; RESP 18; TEMP 98.4
[2024-01-13] VITALS (7 sets, daily range): BP systolic 111–161; BP diastolic 65–70; PULSE 58–74; RESP 17–20; TEMP 96.1–98.8
[2024-01-13 07:26] LABS: HEMATOCRIT. 41.9 % (42.0-52.0); HEMOGLOBIN. 13.9 g/dL (14.0-18.0); MEAN CORPUSCULAR HEMOGLOBIN 31.5 pg (28.0-32.0); MEAN CORPUSCULAR HGB CONC 33.2 g/dL (31.0-37.0); MEAN PLATELET VOLUME 10.2 fl (7.4-10.4); PLATELET 131 x1000/uL (130-400); RED BLOOD CELL COUNT 4.42 mill/uL (4.7-6.1); RED CELL DISTRIBUTION WIDTH 14.4 % (11.6-14.6); WHITE BLOOD COUNT 5.7 x1000/uL (4.5-11.0)
[2024-01-13 07:46] LABS: CARBON DIOXIDE 27 mEq/L (21-32); CHLORIDE 106 mEq/L (98-107); POTASSIUM 3.5 mEq/L (3.5-5.1); SODIUM 143 mEq/L (136-145)
[2024-01-13 07:47] LABS: CALCIUM 9.4 mg/dL (8.7-10.4)
[2024-01-13 07:50] LABS: CREATININE 1.3 mg/dL (0.6-1.3)
[2024-01-13 07:51] LABS: GLUCOSE 121 mg/dL (70-105)
[2024-01-13 07:52] LABS: UREA NITROGEN BLOOD 14 mg/dL (9-23)
[2024-01-13 08:12] LABS: DIFFERENTIAL COMMENT 1
[2024-01-13] MEDS ORDERED: ENOXAPARIN 40MG/0.4ML SYR SUBCUT SCH (09:00)
[2024-01-13 16:40] LABS: PLATELET ESTIMATE NORMAL
[2024-01-14] VITALS: BP 123/63; PULSE 60; RESP 20; TEMP 97.9
[2024-01-14 04:00] VITALS: BP 123/63; PULSE 60; RESP 20; TEMP 97.9
[2024-01-14 08:00] VITALS: BP 144/60; PULSE 58; RESP 18; TEMP 97.9
[2024-01-14 12:00] VITALS: BP 121/82; PULSE 66; RESP 18; TEMP 97.9
[2024-01-14 16:00] VITALS: BP 132/60; PULSE 68; RESP 19; TEMP 100.6
[2024-01-14 20:00] VITALS: BP 150/77; PULSE 74; RESP 19; TEMP 97.5
[2024-01-15] VITALS: BP 121/38; PULSE 60; RESP 20; TEMP 97.5
[2024-01-15 04:00] VITALS: BP 158/66; PULSE 60; RESP 20; TEMP 97.7
[2024-01-15 08:00] VITALS: BP 168/72; PULSE 65; RESP 19; TEMP 99.5
[2024-01-15 12:00] VITALS: BP 168/72; PULSE 64; RESP 20; TEMP 99
[2024-01-15 16:00] VITALS: BP 150/82; PULSE 68; RESP 20; TEMP 97.9
[2024-01-15] MEDS: METOCLOPRAMIDE HCL 10MG/2ML VIAL IV SCH (17:26)
[2024-01-15 20:00] VITALS: BP 161/72; PULSE 69; RESP 18; TEMP 97.5
[2024-01-16] VITALS: BP 168/71; PULSE 62; RESP 18; TEMP 97.5
[2024-01-16 04:00] VITALS: BP 154/69; PULSE 60; RESP 19; TEMP 97.8
[2024-01-16 08:00] VITALS: BP 132/68; PULSE 56; RESP 19; TEMP 97.9
[2024-01-16] MEDS: FAMOTIDINE 20MG/2ML VIAL IV SCH (10:05)
[2024-01-16] MEDS: AMLODIPINE 10MG TABLET PO SCH (11:22)
[2024-01-16 12:00] VITALS: BP 150/63; PULSE 63; RESP 20; TEMP 96.7
[2024-01-16 16:00] VITALS: BP 106/70; PULSE 71; RESP 19; TEMP 96.7
[2024-01-16 20:00] VITALS: BP 142/64; PULSE 66; RESP 18; TEMP 97.9
[2024-01-17 07:22] LABS: CHLORIDE 109 mEq/L (98-107); POTASSIUM 3.9 mEq/L (3.5-5.1); SODIUM 143 mEq/L (136-145)
[2024-01-17 07:23] LABS: CALCIUM 8.9 mg/dL (8.7-10.4)
[2024-01-17 07:28] LABS: CREATININE 1.2 mg/dL (0.6-1.3); GLUCOSE 126 mg/dL (70-105); UREA NITROGEN BLOOD 7 mg/dL (9-23)
[2024-01-17 07:32] LABS: HEMATOCRIT 39.7 % (42.0-52.0); MEAN CORPUSCULAR HEMOGLOBIN 31.8 pg (28.0-32.0); MEAN CORPUSCULAR HGB CONC 32.7 g/dL (31.0-37.0); MEAN CORPUSCULAR VOLUME 97.1 fL (80.0-94.0); PLATELET 143 x1000/uL (130-400); RED BLOOD CELL COUNT 4.09 mill/uL (4.7-6.1); RED CELL DISTRIBUTION WIDTH 14.2 % (11.6-14.6)
[2024-01-17 08:00] VITALS: BP 146/66; PULSE 71; RESP 19; TEMP 98.1
[2024-01-17 11:00] LABS: CARBON DIOXIDE 30 mEq/L (21-32)
[2024-01-17 12:00] VITALS: BP_SYST 144; BP_SYST 146; BP_DIAS 66; BP_DIAS 73; PULSE 78; PULSE 97; RESP 18; TEMP 98.1
[2024-01-17 16:00] VITALS: BP 139/67; PULSE 69; RESP 19; TEMP 95.2
[2024-01-17 20:00] VITALS: BP 155/71; PULSE 87; RESP 20; TEMP 96.6
[2024-01-18] VITALS (7 sets, daily range): BP systolic 111–176; BP diastolic 69–90; PULSE 50–87; RESP 17–20; TEMP 96.6–98.1
[2024-01-18] MEDS: CLONIDINE 0.1MG TABLET PO PRN (06:27)
[2024-01-18] MEDS: FAMOTIDINE 20MG TABLET PO SCH (09:04)
[2024-01-19] VITALS: BP 132/63; PULSE 69; RESP 19; TEMP 97.6
[2024-01-19 04:00] VITALS: BP 114/82; PULSE 77; RESP 18; TEMP 98.6
[2024-01-19 05:49] LABS: CARBON DIOXIDE 28 mEq/L (21-32); CHLORIDE 107 mEq/L (98-107); SODIUM 143 mEq/L (136-145)
[2024-01-19 05:52] LABS: HEMATOCRIT 38.4 % (42.0-52.0); HEMOGLOBIN 12.7 g/dL (14.0-18.0)
[2024-01-19 05:54] LABS: CREATININE 1.2 mg/dL (0.6-1.3); GLUCOSE 85 mg/dL (70-105)
[2024-01-19 05:55] LABS: UREA NITROGEN BLOOD 12 mg/dL (9-23)
[2024-01-19 08:00] VITALS: BP 162/71; PULSE 75; RESP 20; TEMP 97.8
[2024-01-19 12:00] VITALS: BP 154/72; PULSE 76; RESP 20; TEMP 97.8
[2024-01-19] MEDS: FOLIC ACID 1MG TABLET PO SCH (15:57)
[2024-01-19] MEDS: THIAMINE HCL 100MG TABLET PO SCH (15:57)
[2024-01-19 16:00] VITALS: BP 150/74; PULSE 70; RESP 21; TEMP 98.2
[2024-01-19 16:46] LABS: CLARITY URINE CLOUDY (CLEAR); COLOR URINE YELLOW (YELLOW); GLUCOSE URINE NEGATIVE (NEGATIVE); KETONES URINE 2+ (NEGATIVE); LEUKOCYTE ESTERASE URINE TRACE (NEGATIVE); NITRITE URINE POSITIVE (NEGATIVE); OCCULT BLOOD URINE TRACE (NEGATIVE); PROTEIN URINE 1+ (NEGATIVE); UROBILINOGEN URINE 0.2 E.U./dL (0.2-1.0)
[2024-01-19 17:08] LABS: BACTERIA URINE 2+; RBC URINE 0-2 /hpf (0-2)
[2024-01-19] MEDS: CEFTRIAXONE 1GM/50ML 50 ML IV SCH (18:24)
[2024-01-19 20:00] VITALS: BP 144/85; PULSE 85; RESP 19; TEMP 97.2
[2024-01-20] VITALS: BP 138/69; PULSE 74; RESP 19; TEMP 98.2
[2024-01-20 00:05] LABS: SQUAMOUS EPITHELIAL CELL URINE 2+ /lpf (RARE/1+); YEAST URINE 1+
[2024-01-20 04:00] VITALS: BP 127/69; PULSE 77; RESP 18; TEMP 97.2
[2024-01-20 07:11] LABS: HEMATOCRIT. 37.2 % (42.0-52.0); HEMOGLOBIN. 12.4 g/dL (14.0-18.0); MEAN CORPUSCULAR HEMOGLOBIN 31.3 pg (28.0-32.0); MEAN CORPUSCULAR HGB CONC 33.5 g/dL (31.0-37.0); MEAN CORPUSCULAR VOLUME 93.5 fL (80.0-94.0); MEAN PLATELET VOLUME 9.8 fl (7.4-10.4); PLATELET 175 x1000/uL (130-400); RED BLOOD CELL COUNT 3.97 mill/uL (4.7-6.1); RED CELL DISTRIBUTION WIDTH 14.4 % (11.6-14.6)
[2024-01-20 07:33] LABS: DIFFERENTIAL COMMENT 1
[2024-01-20 07:41] LABS: CHLORIDE 102 mEq/L (98-107); POTASSIUM 3.4 mEq/L (3.5-5.1); SODIUM 142 mEq/L (136-145)
[2024-01-20 07:42] LABS: CARBON DIOXIDE 31 mEq/L (21-32)
[2024-01-20 07:47] LABS: CREATININE 1.1 mg/dL (0.6-1.3); GLUCOSE 110 mg/dL (70-105); UREA NITROGEN BLOOD 14 mg/dL (9-23)
[2024-01-20 08:00] VITALS: BP 96/54; PULSE 84; RESP 19; TEMP 97.9
[2024-01-20 12:00] VITALS: BP 156/70; PULSE 84; RESP 19; TEMP 98.1
[2024-01-20] MEDS: FLUCONAZOLE 100MG TABLET PO SCH (13:05)
[2024-01-20 16:00] VITALS: BP 167/76; PULSE 92; RESP 20; TEMP 98.8
[2024-01-20 16:03] LABS: PLATELET ESTIMATE NORMAL
[2024-01-20] MEDS: KCL 10MEQ/50ML PREMIX 50 ML IV NR (18:13)
[2024-01-20 20:00] VITALS: BP 164/74; PULSE 67; RESP 18; TEMP 96.3
[2024-01-21] VITALS: BP 150/72; PULSE 94; RESP 18; TEMP 97.5
[2024-01-21 04:00] VITALS: BP 163/74; PULSE 66; RESP 20; TEMP 97.4
[2024-01-21 08:00] VITALS: BP 159/74; PULSE 65; RESP 19; TEMP 97.9
[2024-01-21 12:00] VITALS: BP 166/73; PULSE 61; RESP 19; TEMP 97.9
[2024-01-21] MEDS: KETOROLAC 15MG/ML VIAL IV NR (12:33)
[2024-01-21 16:00] VITALS: BP 156/79; PULSE 71; RESP 20; TEMP 97.9
[2024-01-21 20:00] VITALS: BP 152/78; PULSE 83; RESP 19; TEMP 98.2
[2024-01-22] VITALS: BP 168/76; PULSE 19; RESP 19; TEMP 97.5
[2024-01-22 04:00] VITALS: BP 165/70; PULSE 81; RESP 19; TEMP 97.9
[2024-01-22 08:00] VITALS: BP 148/58; PULSE 60; RESP 19; TEMP 97.7
[2024-01-22 08:02] LABS: HEMATOCRIT 35.6 % (42.0-52.0); MEAN CORPUSCULAR HEMOGLOBIN 31.7 pg (28.0-32.0); MEAN CORPUSCULAR HGB CONC 33.7 g/dL (31.0-37.0); MEAN CORPUSCULAR VOLUME 93.9 fL (80.0-94.0); PLATELET 174 x1000/uL (130-400); RED BLOOD CELL COUNT 3.79 mill/uL (4.7-6.1); WHITE BLOOD COUNT 5.8 x1000/uL (4.5-11.0)
[2024-01-22 08:10] LABS: CHLORIDE 106 mEq/L (98-107); POTASSIUM 3.3 mEq/L (3.5-5.1); SODIUM 144 mEq/L (136-145)
[2024-01-22 08:12] LABS: CARBON DIOXIDE 32 mEq/L (21-32)
[2024-01-22 08:17] LABS: CREATININE 1.2 mg/dL (0.6-1.3); GLUCOSE 81 mg/dL (70-105); UREA NITROGEN BLOOD 14 mg/dL (9-23)
[2024-01-22 08:19] LABS: ALANINE AMINOTRANSFERASE 12 IU/L (10-49); ALBUMIN 3.4 g/dL (3.2-4.8); ASPARTATE AMINOTRANSFERASE 22 IU/L (<34); BILIRUBIN TOTAL 0.4 mg/dL (0.1-1.0); PHOSPHORUS 2.4 mg/dL (2.5-4.9)
[2024-01-22 08:27] LABS: PROTEIN TOTAL 5.6 g/dL (6.0-8.3)
[2024-01-22 08:32] LABS: CALCIUM 9.8 mg/dL (8.7-10.4)
[2024-01-22] MEDS ORDERED: POTASSIUM CHLORIDE 20 MEQ in DEXT 5% WATER 90 ML IV ONE (10:30)
[2024-01-22 12:00] VITALS: BP 140/71; PULSE 74; RESP 19; TEMP 97.7
[2024-01-22] MEDS: KCL 20MEQ/100ML PREMIX 100 ML IV NR (12:32)
[2024-01-22] MEDS ORDERED: KCL 20MEQ/100ML PREMIX 100 ML IV SCH (13:00)
[2024-01-22 16:00] VITALS: BP 142/69; PULSE 72; RESP 18; TEMP 97.5
[2024-01-22] MEDS: METOCLOPRAMIDE HCL 10MG/2ML VIAL IV SCH (18:02)
[2024-01-22 20:00] VITALS: BP 98/68; PULSE 74; RESP 19; TEMP 97.5
[2024-01-23] VITALS: BP 144/74; PULSE 82; RESP 19; TEMP 97.7
[2024-01-23 07:08] LABS: HEMATOCRIT. 38.5 % (42.0-52.0); HEMOGLOBIN. 12.8 g/dL (14.0-18.0); MEAN CORPUSCULAR HEMOGLOBIN 31.2 pg (28.0-32.0); MEAN CORPUSCULAR HGB CONC 33.3 g/dL (31.0-37.0); MEAN CORPUSCULAR VOLUME 93.6 fL (80.0-94.0); MEAN PLATELET VOLUME 9.4 fl (7.4-10.4); PLATELET 188 x1000/uL (130-400); RED BLOOD CELL COUNT 4.11 mill/uL (4.7-6.1); RED CELL DISTRIBUTION WIDTH 14.2 % (11.6-14.6); WHITE BLOOD COUNT 5.5 x1000/uL (4.5-11.0)
[2024-01-23 07:09] LABS: DIFFERENTIAL COMMENT 1
[2024-01-23 07:19] LABS: CARBON DIOXIDE 30 mEq/L (21-32); CHLORIDE 105 mEq/L (98-107); SODIUM 143 mEq/L (136-145)
[2024-01-23 07:20] LABS: CALCIUM 9.8 mg/dL (8.7-10.4)
[2024-01-23 07:24] LABS: CREATININE 1.2 mg/dL (0.6-1.3); GLUCOSE 126 mg/dL (70-105)
[2024-01-23 07:25] LABS: UREA NITROGEN BLOOD 13 mg/dL (9-23)
[2024-01-23 07:26] LABS: ALBUMIN 3.8 g/dL (3.2-4.8)
[2024-01-23 07:27] LABS: ALANINE AMINOTRANSFERASE 14 IU/L (10-49); ASPARTATE AMINOTRANSFERASE 23 IU/L (<34); BILIRUBIN TOTAL 0.4 mg/dL (0.1-1.0); PROTEIN TOTAL 6.3 g/dL (6.0-8.3)
[2024-01-23 08:00] VITALS: BP 159/77; PULSE 75; RESP 19; TEMP 97.1
[2024-01-23] MEDS: KCL 20MEQ/100ML PREMIX 100 ML IV SCH (11:19)
[2024-01-23 12:00] VITALS: BP 149/78; PULSE 87; RESP 19; TEMP 96.7
[2024-01-23 13:11] LABS: ATYPICAL LYMPHOCYTES 1
[2024-01-23 13:12] LABS: PLATELET ESTIMATE NORMAL
[2024-01-23 16:00] VITALS: BP 149/78; PULSE 87; RESP 18; TEMP 96.7
[2024-01-23 20:00] VITALS: BP 150/75; PULSE 80; RESP 19; TEMP 98.1
[2024-01-24] VITALS: BP 148/87; PULSE 86; RESP 19; TEMP 98.4
[2024-01-24 04:00] VITALS: BP 147/60; PULSE 70; RESP 19; TEMP 98.6
[2024-01-24 08:00] VITALS: BP 98/68; PULSE 65; RESP 19; TEMP 97.9
[2024-01-24] MEDS ORDERED: KCL 20MEQ/100ML PREMIX 100 ML IV SCH (09:45)
[2024-01-24] MEDS ORDERED: AMLO10TA80 PO (10:18)
[2024-01-24] MEDS ORDERED: LOSA100T33 PO (10:18)
[2024-01-24] MEDS ORDERED: ATOR40TA70 PO (10:18)
[2024-01-24] MEDS ORDERED: PANT40TA51 PO (10:18)
[2024-01-24 12:00] VITALS: BP 101/70; PULSE 67; RESP 18; TEMP 98.9
[2024-01-24] MEDS: DEXT 5%/0.9% NACL KCL 20MEQ/L 1,000 ML IV SCH (13:49)
[2024-01-24 20:00] VITALS: BP_SYST 114; BP_DIAS 6; BP_DIAS 61; PULSE 102; RESP 17; TEMP 97.6
[2024-01-25] VITALS: BP 119/64; PULSE 82; RESP 19; TEMP 98.4
[2024-01-25 04:00] VITALS: BP 133/69; PULSE 71; RESP 17; TEMP 97.4
[2024-01-25 06:06] LABS: CHLORIDE 110 mEq/L (98-107); POTASSIUM 3.6 mEq/L (3.5-5.1); SODIUM 148 mEq/L (136-145)
[2024-01-25 06:07] LABS: CALCIUM 9.7 mg/dL (8.7-10.4); CARBON DIOXIDE 32 mEq/L (21-32)
[2024-01-25 06:11] LABS: CREATININE 1.2 mg/dL (0.6-1.3)
[2024-01-25 06:12] LABS: GLUCOSE 133 mg/dL (70-105); UREA NITROGEN BLOOD 13 mg/dL (9-23)
[2024-01-25 06:27] LABS: BASOPHILS % 0.4 % (0.0-2.0); EOSINOPHILS % 1.9 % (0.0-5.0); HEMATOCRIT. 38.8 % (42.0-52.0); HEMOGLOBIN. 13.2 g/dL (14.0-18.0); LYMPHOCYTES % 7.1 % (20.0-50.0); MEAN CORPUSCULAR HEMOGLOBIN 31.8 pg (28.0-32.0); MEAN CORPUSCULAR HGB CONC 34.1 g/dL (31.0-37.0); MEAN CORPUSCULAR VOLUME 93.2 fL (80.0-94.0); MEAN PLATELET VOLUME 9.7 fl (7.4-10.4); MONOCYTES % 10.8 % (2.0-8.0); NEUTROPHILS % 79.8 % (40.0-76.0); PLATELET 215 x1000/uL (130-400); RED BLOOD CELL COUNT 4.16 mill/uL (4.7-6.1); RED CELL DISTRIBUTION WIDTH 14.3 % (11.6-14.6); WHITE BLOOD COUNT 5.6 x1000/uL (4.5-11.0)
[2024-01-25 08:00] VITALS: BP 149/67; PULSE 69; RESP 18; TEMP 97.7
[2024-01-25] MEDS: FAMOTIDINE 20MG/2ML VIAL IV SCH (10:16)
[2024-01-25] MEDS: DIATR MEGLU/DIATRIZOATE SOLN 30ML PO NR (11:03)
[2024-01-25 12:00] VITALS: BP 150/61; PULSE 68; RESP 20; TEMP 97.8
[2024-01-25] MEDS: SODIUM CHLORIDE 0.45% 500 ML IV ONE (12:43)
[2024-01-25] MEDS: DEXTROSE 5% WATER 1,000 ML IV SCH (12:44)
[2024-01-25] MEDS ORDERED: IOHEXOL-300 100 ML BOTTLE ONE (14:30)
[2024-01-25 16:00] VITALS: BP 150/66; PULSE 67; RESP 20; TEMP 97.7
[2024-01-25] MEDS: PANTOPRAZOLE SODIUM 40 MG/VIAL IV SCH (18:34)
[2024-01-25] MEDS: DEXT 5% IV NR (18:35)
[2024-01-25] MEDS: WATER IV NR (18:35)
[2024-01-25] MEDS: POTASSIUM CHLORIDE IV NR (18:35)
[2024-01-25 20:00] VITALS: BP 156/70; PULSE 83; RESP 19; TEMP 97.7
[2024-01-26] VITALS: BP 142/61; PULSE 78; RESP 18; TEMP 98.3
[2024-01-26 04:00] VITALS: BP 145/66; PULSE 72; RESP 18; TEMP 97.2
[2024-01-26 08:00] VITALS: BP 129/67; PULSE 87; RESP 20; TEMP 97.4
[2024-01-26 09:14] LABS: CHLORIDE 108 mEq/L (98-107); SODIUM 142 mEq/L (136-145)
[2024-01-26 09:15] LABS: CARBON DIOXIDE 30 mEq/L (21-32)
[2024-01-26 09:17] LABS: BASOPHILS % 0.7 % (0.0-2.0); EOSINOPHILS % 2.3 % (0.0-5.0); HEMATOCRIT. 39.1 % (42.0-52.0); HEMOGLOBIN. 12.9 g/dL (14.0-18.0); LYMPHOCYTES % 9.9 % (20.0-50.0); MEAN CORPUSCULAR HEMOGLOBIN 31.3 pg (28.0-32.0); MEAN CORPUSCULAR VOLUME 94.9 fL (80.0-94.0); MEAN PLATELET VOLUME 9.3 fl (7.4-10.4); MONOCYTES % 11.3 % (2.0-8.0); NEUTROPHILS % 75.8 % (40.0-76.0); PLATELET 211 x1000/uL (130-400); RED BLOOD CELL COUNT 4.12 mill/uL (4.7-6.1); RED CELL DISTRIBUTION WIDTH 14.2 % (11.6-14.6); WHITE BLOOD COUNT 4.9 x1000/uL (4.5-11.0)
[2024-01-26 09:20] LABS: CREATININE 1.2 mg/dL (0.6-1.3)
[2024-01-26 09:21] LABS: GLUCOSE 106 mg/dL (70-105); UREA NITROGEN BLOOD 10 mg/dL (9-23)
[2024-01-26 09:22] LABS: ALANINE AMINOTRANSFERASE 12 IU/L (10-49); ALBUMIN 3.8 g/dL (3.2-4.8); ASPARTATE AMINOTRANSFERASE 21 IU/L (<34)
[2024-01-26 09:23] LABS: BILIRUBIN DIRECT 0.1 mg/dL (<=3.0); BILIRUBIN TOTAL 0.4 mg/dL (0.1-1.0); PROTEIN TOTAL 6.6 g/dL (6.0-8.3)
[2024-01-26 12:00] VITALS: BP 122/57; PULSE 109; RESP 20; TEMP 97.8
[2024-01-26 16:00] VITALS: BP 144/70; PULSE 98; RESP 20; TEMP 98
[2024-01-26 20:48] VITALS: BP 128/63; PULSE 71; RESP 18; TEMP 97.3
[2024-01-27] VITALS: BP 123/58; PULSE 71; RESP 16; TEMP 97.5
[2024-01-27 04:00] VITALS: BP 154/69; PULSE 64; RESP 18; RESP 20; TEMP 96.6; TEMP 97
[2024-01-27 08:00] VITALS: BP 128/64; PULSE 63; RESP 16; TEMP 96.9
[2024-01-27 12:00] VITALS: BP 130/67; PULSE 66; RESP 18; TEMP 97
[2024-01-27 16:00] VITALS: BP 146/87; PULSE 74; RESP 18; TEMP 97.3
[2024-01-27] MEDS: MAGNESIUM 1 G PREMIX 100 ML IV SCH (16:12)
[2024-01-27 20:00] VITALS: BP 150/75; PULSE 75; RESP 19; TEMP 97.3
[2024-01-28] VITALS: BP 142/75; PULSE 86; RESP 18; TEMP 98.2
[2024-01-28 03:24] LABS: HEMOGLOBIN. 12.7 g/dL (14.0-18.0); MEAN CORPUSCULAR HEMOGLOBIN 31.6 pg (28.0-32.0); MEAN CORPUSCULAR HGB CONC 34.3 g/dL (31.0-37.0); MEAN CORPUSCULAR VOLUME 92.1 fL (80.0-94.0); MEAN PLATELET VOLUME 9.6 fl (7.4-10.4); PLATELET 222 x1000/uL (130-400); RED BLOOD CELL COUNT 4.02 mill/uL (4.7-6.1); RED CELL DISTRIBUTION WIDTH 13.7 % (11.6-14.6)
[2024-01-28 03:27] LABS: DIFFERENTIAL COMMENT 1
[2024-01-28 03:34] LABS: INR 1.1; PROTHROMBIN TIME 12.3 sec (9.6-11.0)
[2024-01-28 03:48] LABS: PLATELET ESTIMATE NORMAL
[2024-01-28 04:00] VITALS: BP 138/71; PULSE 75; RESP 18; TEMP 96.8
[2024-01-28 04:24] LABS: CALCIUM 9.3 mg/dL (8.7-10.4); CARBON DIOXIDE 28 mEq/L (21-32); CHLORIDE 103 mEq/L (98-107); POTASSIUM 3.9 mEq/L (3.5-5.1); SODIUM 136 mEq/L (136-145)
[2024-01-28 04:29] LABS: CREATININE 1.3 mg/dL (0.6-1.3)
[2024-01-28 04:30] LABS: GLUCOSE 118 mg/dL (70-105); UREA NITROGEN BLOOD 10 mg/dL (9-23)
[2024-01-28 08:00] VITALS: BP 120/61; PULSE 70; RESP 20; TEMP 97.4
[2024-01-28] MEDS ORDERED: LIDOCAINE HCL 1% 10 MG/ML 10ML VIAL ONE (12:00)
[2024-01-28] MEDS ORDERED: PROPOFOL 200MG/20ML VIAL IV ONE ×2 (12:01→13:53)
[2024-01-28] MEDS ORDERED: LABETALOL 5MG/ML SYR 20 MG/4 ML SYRINGE IV PRN (12:30)
[2024-01-28] MEDS ORDERED: HYDROMORPHONE HCL/PF 2MG/ML CPJ IV PRN (12:30)
[2024-01-28] MEDS ORDERED: MEPERIDINE HCL/PF 25MG/ML CPJ IV PRN (12:30)
[2024-01-28] MEDS ORDERED: ONDANSETRON HCL 4MG/2ML INJ IV PRN (12:30)
[2024-01-28 16:00] VITALS: BP 143/73; PULSE 70; RESP 20; TEMP 97.2
[2024-01-28 20:00] VITALS: BP 135/60; PULSE 75; RESP 20; TEMP 97.5
[2024-01-29] VITALS: BP 128/62; PULSE 78; RESP 19; TEMP 97
[2024-01-29 04:00] VITALS: BP 120/60; PULSE 76; RESP 20; TEMP 97.2
[2024-01-29 06:43] LABS: HEMATOCRIT. 40.1 % (42.0-52.0); HEMOGLOBIN. 13.8 g/dL (14.0-18.0); MEAN CORPUSCULAR HEMOGLOBIN 31.6 pg (28.0-32.0); MEAN CORPUSCULAR HGB CONC 34.4 g/dL (31.0-37.0); MEAN PLATELET VOLUME 9.5 fl (7.4-10.4); PLATELET 240 x1000/uL (130-400); RED BLOOD CELL COUNT 4.36 mill/uL (4.7-6.1); RED CELL DISTRIBUTION WIDTH 13.9 % (11.6-14.6); WHITE BLOOD COUNT 4.2 x1000/uL (4.5-11.0)
[2024-01-29 07:08] LABS: CARBON DIOXIDE 25 mEq/L (21-32); CHLORIDE 103 mEq/L (98-107); POTASSIUM 3.8 mEq/L (3.5-5.1); SODIUM 136 mEq/L (136-145)
[2024-01-29 07:09] LABS: CALCIUM 9.7 mg/dL (8.7-10.4)
[2024-01-29 07:13] LABS: CREATININE 1.2 mg/dL (0.6-1.3)
[2024-01-29 07:14] LABS: GLUCOSE 91 mg/dL (70-105); UREA NITROGEN BLOOD 11 mg/dL (9-23)
[2024-01-29 07:18] LABS: DIFFERENTIAL COMMENT 1
[2024-01-29 08:00] VITALS: BP 104/65; PULSE 70; RESP 17; TEMP 97.2
[2024-01-29 12:00] VITALS: BP 117/62; PULSE 87; RESP 18; TEMP 97.4
[2024-01-29 16:00] VITALS: BP 122/75; PULSE 69; RESP 19; TEMP 97.7
[2024-01-29 20:00] VITALS: BP 116/71; PULSE 81; RESP 20; TEMP 98.7
[2024-01-30] VITALS: BP 123/74; PULSE 72; RESP 20; TEMP 98.4
[2024-01-30 04:00] VITALS: BP 119/70; PULSE 94; RESP 22; TEMP 97.8
[2024-01-30 06:30] LABS: PLATELET ESTIMATE NORMAL
[2024-01-30 08:00] VITALS: BP 103/61; PULSE 102; RESP 18; TEMP 97.9
[2024-01-30 12:00] VITALS: BP 110/70; PULSE 110; RESP 18; TEMP 96
[2024-01-30 16:00] VITALS: BP 121/69; PULSE 113; RESP 20; TEMP 98
[2024-01-30 20:00] VITALS: BP 113/69; PULSE 100; RESP 18; TEMP 97.6
[2024-01-31] VITALS: BP 106/68; RESP 18; TEMP 97.8
[2024-01-31 08:00] VITALS: BP 140/77; PULSE 94; RESP 20; TEMP 97.9
[2024-01-31 08:04] LABS: HEMATOCRIT. 39.8 % (42.0-52.0); HEMOGLOBIN. 13.5 g/dL (14.0-18.0); MEAN CORPUSCULAR HEMOGLOBIN 31.6 pg (28.0-32.0); MEAN CORPUSCULAR VOLUME 92.9 fL (80.0-94.0); PLATELET 289 x1000/uL (130-400); RED BLOOD CELL COUNT 4.28 mill/uL (4.7-6.1); RED CELL DISTRIBUTION WIDTH 14.1 % (11.6-14.6); WHITE BLOOD COUNT 8.4 x1000/uL (4.5-11.0)
[2024-01-31 08:09] LABS: CALCIUM 10.3 mg/dL (8.7-10.4)
[2024-01-31 08:31] LABS: DIFFERENTIAL COMMENT 1
[2024-01-31 10:09] LABS: PLATELET ESTIMATE NORMAL
[2024-01-31] MEDS ORDERED: LIDOCAINE HCL 1% 10 MG/ML 10ML VIAL ONE (10:45)
[2024-01-31] MEDS: MAGNESIUM OXIDE 400MG TABLET PO SCH (11:51)
[2024-01-31] MEDS: DEXT 5%/0.9% NACL 1,000 ML IV SCH (11:51)
[2024-01-31 12:00] VITALS: BP 126/62; PULSE 84; RESP 18; TEMP 98
[2024-02-01] VITALS: BP 142/65; PULSE 75; RESP 18; TEMP 97.5
[2024-02-01 06:00] LABS: CHLORIDE 111 mEq/L (98-107); SODIUM 141 mEq/L (136-145)
[2024-02-01 06:01] LABS: CALCIUM 9.6 mg/dL (8.7-10.4); CARBON DIOXIDE 27 mEq/L (21-32)
[2024-02-01 06:06] LABS: GLUCOSE 136 mg/dL (70-105)
[2024-02-01 06:08] LABS: UREA NITROGEN BLOOD 24 mg/dL (9-23)
[2024-02-01 06:55] LABS: CREATININE 1.3 mg/dL (0.6-1.3)
[2024-02-01 08:00] VITALS: PULSE 74; RESP 18; TEMP 98.2
[2024-02-01 12:00] VITALS: BP 145/67; PULSE 74; RESP 18; TEMP 97.9
[2024-02-01 16:00] VITALS: BP 135/64; PULSE 76; RESP 20; TEMP 97.3
[2024-02-01 16:56] VITALS: BP 145/67; PULSE 74; TEMP 97.9; O2SAT 99
== END 2024-02-01 19:00 | DRG 871 ==
LOC: ER 07:16 → 6EST 11:25 → EDBEDREQ 11:26 → EDBEDREQTM 11:26 → EDBEDREQSVC 11:26 → 7WST 01-24 17:44 → 6WST 01-28 15:59
PROVIDERS: ADMIT Hospitalist; ATTEND Hospitalist
PROC: 0DJ68ZZ Inspection of Stomach, Via Natural or Artificial Opening Endoscopic (ICD-10-PCS; 2024-01-28)
PROC: 02HV33Z Insertion of Infusion Device into Superior Vena Cava, Percutaneous Approach (ICD-10-PCS; principal; 2024-01-31)
PROC: B5181ZA Fluoroscopy of Superior Vena Cava using Low Osmolar Contrast, Guidance (ICD-10-PCS; 2024-01-31)
DX: A41.9 Sepsis, unspecified organism (principal); G82.50 Quadriplegia, unspecified; G93.41 Metabolic encephalopathy; E46 Unspecified protein-calorie malnutrition; N17.9 Acute kidney failure, unspecified; R64 Cachexia; N39.0 Urinary tract infection, site not specified; Z68.1 Body mass index [BMI] 19.9 or less, adult; K29.70 Gastritis, unspecified, without bleeding; K57.30 Diverticulosis of large intestine without perforation or abscess without bleeding; K20.90 Esophagitis, unspecified without bleeding; K44.9 Diaphragmatic hernia without obstruction or gangrene; I10 Essential (primary) hypertension; Z85.038 Personal history of other malignant neoplasm of large intestine; Z90.49 Acquired absence of other specified parts of digestive tract; D64.9 Anemia, unspecified; K82.8 Other specified diseases of gallbladder; E88.09 Other disorders of plasma-protein metabolism, not elsewhere classified; R62.7 Adult failure to thrive; R13.10 Dysphagia, unspecified; N43.3 Hydrocele, unspecified; N40.0 Benign prostatic hyperplasia without lower urinary tract symptoms; K59.00 Constipation, unspecified; E83.42 Hypomagnesemia; E87.6 Hypokalemia; E78.00 Pure hypercholesterolemia, unspecified; Z98.1 Arthrodesis status; Z92.21 Personal history of antineoplastic chemotherapy; Z90.79 Acquired absence of other genital organ(s); Z85.46 Personal history of malignant neoplasm of prostate; Z85.028 Personal history of other malignant neoplasm of stomach; Z79.899 Other long term (current) drug therapy
CPT/HCPCS: 36415; 36573; 71045; 74018; 74176; 74177; 80048; 80053; 80076; 81003; 82962; 83605; 83735; 84100; 85014; 85018; 85025; 85027; 85044; 92523; 92610; 93005; 93970; 97162; 97164; 97166; 97168; 97530; 97535; 99285; A6261; C1725; C1893; C9113; J0696; J1650; J1885; J2270; J2405; J2704; J2765; J3475; J3480; J3490; J7040; J7042; J7060; J7070; Q9963; Q9967